=== PATIENT | male | born 1970 | race Caucasian/White ===

== ENCOUNTER → 2017-03-21 11:27 | Outpatient (CLI) | payer OTHER, SELFPAY ==
--- NOTE | 2017-03-21 11:33 | RAD_ITS ---
STUDY: X-RAY - CERVICAL SPINE REASON FOR EXAM: Male, 46 years old. Pain. Headaches with numbness. Tingling in both arms and hands for 6 months. TECHNIQUE: 3 view(s) of the cervical spine were obtained. COMPARISON: None FINDINGS: Normal anterior atlantoaxial articulation. Normal odontoid process. There is straightening of the normal cervical lordosis. Normal vertebral bodies and endplates. Normal disc space heights. There is no evidence of acute fracture or loss of vertebral axial height. There is maintenance of normal alignment. The soft tissue structures are unremarkable. RAD/Cerv Spine 2 or 3 Views IMPRESSION: Straightened cervical lordosis without other evidence of cervical spine abnormality. Electronically Signed: Anderson Clark DO at 12:37 EST Tel [phone], Service support ,
== END ==
PROVIDERS: Family Provider Internal Medicine; PCP Internal Medicine; Visit Provider Internal Medicine
DX: M54.12 Radiculopathy, cervical region (principal)
CPT/HCPCS: 72040

== ENCOUNTER → 2017-04-04 11:07 | Outpatient (CLI) | payer OTHER, SELFPAY ==
[2017-04-04 12:00] LABS: Amphetamine Urine VISTA NEGATIVE (<1000 ng/mL); Barbiturate Urine VISTA NEGATIVE (< 200 ng/mL); Benzodiazepine Urine VISTA NEGATIVE (< 200 ng/mL); Cocaine Urine VISTA NEGATIVE (< 300 ng/mL); Ecstacy Urine VISTA NEGATIVE (< 500 ng/mL); Methadone Urine VISTA NEGATIVE (< 300 ng/mL); PCP Urine VISTA NEGATIVE (< 25 ng/mL); THC Urine VISTA NEGATIVE (< 50 ng/mL); Vista UDS pH Range 4
== END ==
PROVIDERS: Family Provider Internal Medicine; PCP Internal Medicine; Visit Provider Anesthesiology Pain Medicine
DX: F11.20 Opioid dependence, uncomplicated (principal)
CPT/HCPCS: 80307

== ENCOUNTER → 2017-06-15 10:13 | Outpatient (CLI) | payer OTHER, SELFPAY ==
--- NOTE | 2017-06-15 12:46 | NEURO ---
NCS and/or EMG Patient Report Ordering Doctor: Mary Alice Cancino DATE OF SERVICE: 06/15/17 Ren Gonzalez is a 46-year-old male presents for electrodiagnostic testing of the upper limbs. He reports chief complaint of numbness in both hands. He also reports chronic neck pain. Electrodiagnostic findings: Median motor nerve demonstrates normal distal latency and amplitude bilaterally. Reduced median motor conduction velocity is noted bilaterally. Ulnar motor responses are normal bilaterally, including conduction across the elbow. Normal ulnar and radial sensory responses are noted. Prolonged right median sensory distal latency is noted. On needle EMG, all muscles tested in the upper limbs show no evidence of denervation with normal motor unit action potentials. Electrodiagnostic impression: This is an abnormal study. 1. Electrodiagnostic findings demonstrate bilateral median mononeuropathy. This is consistent with a mild bilateral carpal tunnel syndrome 2. No electrodiagnostic evidence is noted for ulnar neuropathy. This includes no evidence for cubital tunnel syndrome. 3. No electrodiagnostic evidence for cervical radiculopathy. If there are any further questions, please do not hesitate to contact me.
== END ==
PROVIDERS: Family Provider Internal Medicine; PCP Internal Medicine; Visit Provider Internal Medicine
DX: M54.12 Radiculopathy, cervical region (principal)
CPT/HCPCS: 95886; 95912

== ENCOUNTER → 2017-11-25 16:15 | Outpatient (CLI) | payer OTHER, SELFPAY ==
--- NOTE | 2017-11-25 16:18 | MRI_ITS ---
STUDY: MRI CERVICAL SPINE WITHOUT CONTRAST REASON FOR EXAM: Male, 47 years old. Neck pain and bilateral arm numbness TECHNIQUE: Standardized fat and water weighted pulse sequences were obtained in the sagittal and axial planes. COMPARISON: None FINDINGS: Normal foramen magnum and brainstem-cervical cord junction. Normal craniovertebral junction. Normal anterior atlantoaxial articulation. Normal odontoid process. Normal cervical lordosis. Normal vertebral bodies and posterior osseous elements. C2-3: Normal endplates. Normal disc height, signal and morphology. Normal central canal and intervertebral neural foramina. C3-4: Normal endplates. Normal disc height, signal and morphology. Normal central canal and intervertebral neural foramina. C4-5: Normal endplates. Normal disc height, signal and morphology. Normal central canal and intervertebral neural foramina. C5-6: Disc osteophyte complex with mild central canal stenosis. C6-7: Normal endplates. Normal disc height, signal and morphology. Normal central canal and intervertebral neural foramina. C7-T1: Normal endplates. Normal disc height, signal and morphology. Normal central canal and intervertebral neural foramina. Normal cervical cord. Normal visualized soft tissue structures. MRI/Spine Cervical (Routine) IMPRESSION: Mild C5-6 disc disease. No evidence of nerve root impingement or cord pathology. Electronically Signed: Corey Black MD at 3:41 EDT Tel , Service support ,
== END ==
PROVIDERS: Family Provider Internal Medicine; PCP Internal Medicine; Referring Provider Anesthesiology Pain Medicine; Visit Provider Anesthesiology Pain Medicine
DX: M54.2 Cervicalgia (principal)
CPT/HCPCS: 72141

== ENCOUNTER → 2018-04-11 10:27 | Outpatient (CLI) | payer OTHER, SELFPAY ==
[2018-04-11 11:30] LABS: Amphetamine Urine VISTA POSITIVE (<1000 ng/mL); Barbiturate Urine VISTA NEGATIVE (< 200 ng/mL); Benzodiazepine Urine VISTA NEGATIVE (< 200 ng/mL); Cocaine Urine VISTA NEGATIVE (< 300 ng/mL); Ecstacy Urine VISTA NEGATIVE (< 500 ng/mL); Methadone Urine VISTA NEGATIVE (< 300 ng/mL); PCP Urine VISTA NEGATIVE (< 25 ng/mL); THC Urine VISTA NEGATIVE (< 50 ng/mL); Vista UDS pH Range 5
== END ==
PROVIDERS: Family Provider Internal Medicine; PCP Internal Medicine; Referring Provider Anesthesiology Pain Medicine; Visit Provider Anesthesiology Pain Medicine
DX: F11.20 Opioid dependence, uncomplicated (principal)
CPT/HCPCS: 80307

== ENCOUNTER → 2018-12-04 09:53 | Outpatient (CLI) | payer OTHER, SELFPAY ==
[2017-03-15 14:44] VITALS: BMI 45.4
[2018-12-04 11:58] LABS: Amphetamine Urine VISTA NEGATIVE (<1000 ng/mL); Barbiturate Urine VISTA NEGATIVE (< 200 ng/mL); Benzodiazepine Urine VISTA NEGATIVE (< 200 ng/mL); Cocaine Urine VISTA NEGATIVE (< 300 ng/mL); Ecstacy Urine VISTA NEGATIVE (< 500 ng/mL); Methadone Urine VISTA NEGATIVE (< 300 ng/mL); PCP Urine VISTA NEGATIVE (< 25 ng/mL); THC Urine VISTA NEGATIVE (< 50 ng/mL); Vista UDS pH Range 5
== END ==
PROVIDERS: Family Provider Internal Medicine; PCP Internal Medicine; Referring Provider Anesthesiology Pain Medicine; Visit Provider Anesthesiology Pain Medicine
DX: F11.20 Opioid dependence, uncomplicated (principal)
CPT/HCPCS: 80307

== ENCOUNTER → 2019-08-21 17:27 | Outpatient (CLI) | payer OTHER, SELFPAY ==
--- NOTE | 2019-08-21 17:35 | MRI_ITS ---
STUDY: MRI LUMBAR SPINE WITHOUT CONTRAST REASON FOR EXAM: Male, 49 years old. lbp, bilat leg pain (R and amp;gt;L) -- -- Patient has had prior surgery at L5-S1 TECHNIQUE: Standardized fat and water weighted pulse sequences were obtained in the sagittal and axial planes. COMPARISON: None FINDINGS: T12-L1: Normal endplates. Normal disc height, hydration and normal morphology. Normal bilateral facet joints. Normal central canal and bilateral lateral recesses. Normal bilateral intervertebral neural foramina. Normal lumbar lordosis. There is no substantial scoliosis. Normal conus medullaris that terminates at T12-L1 L1-2: Normal endplates. Normal disc height, hydration and normal morphology. Normal bilateral facet joints. Normal central canal and bilateral lateral recesses. Normal bilateral intervertebral neural foramina. L2-3: Normal endplates. Normal disc height, hydration and normal morphology... Normal bilateral facet joints. Normal central canal and bilateral lateral recesses. Normal bilateral intervertebral neural foramina. L3-4: Normal endplates. Normal disc height, hydration and minimal annular bulge. Bilateral facet arthropathy and thickening of ligamenta flava. Normal central canal and bilateral lateral recesses. Mild to moderate bilateral neural foraminal encroachment L4-5: Normal endplates. Normal disc height, hydration and minor annular bulge.. Bilateral facet arthropathy.. Normal central canal and bilateral lateral recesses. Mild to moderate bilateral neural foraminal encroachment L5-S1: Postop change status post bilateral laminotomy Normal endplates. Normal disc height, desiccation and minor annular bulge in association with tiny central disc protrusion.. Bilateral facet arthropathy.. Normal central canal and bilateral lateral recesses. Moderate bilateral neuroforaminal stenosis. Normal visualized sacral ala. Normal visualized paraspinous soft tissue structures. MRI/Spine Lumbar (Routine) IMPRESSION: No evidence for acute fracture or subluxation. Postsurgical changes at L5-S1. Mild multilevel spinal stenosis secondary to bulging annuli and facet arthropathy most pronounced at L5-S1. Electronically Signed: Aneesh Banegas MD at 19:20 EDT , Service support ,
== END ==
PROVIDERS: PCP Internal Medicine; Referring Provider Anesthesiology Pain Medicine; Visit Provider Anesthesiology Pain Medicine
DX: M54.9 Dorsalgia, unspecified (principal); M79.604 Pain in right leg; M79.605 Pain in left leg
CPT/HCPCS: 72148

== ENCOUNTER 2019-08-28 17:38 | Observation (INO) | payer OTHER, SELFPAY ==
[2019-08-28] VITALS (8 sets, daily range): BP systolic 116–159; BP diastolic 84–103; PULSE 79–124; RESP 16–25; TEMP 36.6–37.1; O2SAT 95–97; BMI 42.3; BMI 41.8
--- NOTE | 2019-08-28 18:03 | EKG12_ITS ---
Test Reason : CP Blood Pressure : / mmHG Vent. Rate : 124 BPM Atrial Rate : 124 BPM P-R Int : 176 ms QRS Dur : 106 ms QT Int : 306 ms P-R-T Axes : 054 270 048 degrees QTc Int : 439 ms Sinus tachycardia Left anterior fascicular block Abnormal ECG Confirmed by JOSE YATES, HALI ([id number]), electronic news gathering editor SARA BOATENG ([id number]) on 08/30/2019 1:25:38 PM Referred By: Lay Emanuel Confirmed By:HALI GARCIA MD
[2019-08-28 18:09] LABS: Absolute Lymphocyte Count 2.12 X10^3/uL (0.83-4.51); Absolute Neutrophil Count 6.1 X10^3/uL (2.0-7.7); Basophil# 0.06 X10^3/uL; Basophil% 0.6 % (0-1); Eosinophil# 0.12 X10^3/uL; Eosinophils% 1.3 % (0-5); Hematocrit 48.4 % (40-54); Hemoglobin 15.9 g/dL (13.0-16.5); Lymphocyte # 2.12 X10^3/ul (4.0); Lymphocyte % 22.8 % (19-41); Mean Corp Hgb Conc 32.9 g/dL (32-36); Mean Corpuscular Hgb 29.2 pg (27.0-32.0); Mean Platelet Vol. 10.8 fl (6.2-12.0); Monocyte# 0.84 X10^3/uL; Monocyte% 9.1 % (0-10); NRBC Flagged by Analyzer 0 % (0-5); Neutrophil # 6.08 X10^3/uL (2.7-7.7); Neutrophil % 65.6 % (47-70); Platelet Count 238 K/mm3 (150-450); RBC Distribution Width CV 13.1 % (11.6-14.6); RBC Distribution Width SD 42.3 fl (35.1-43.9); Red Blood Count 5.44 M/mm3 (4.6-6.2); White Blood Count 9.3 K/mm3 (4.4-11.0)
[2019-08-28 18:17] LABS: D-Dimer Quantitative (DVT/PE) 0.33 FEU/ug/m (0.27-0.49)
--- NOTE | 2019-08-28 18:18 | RAD_ITS ---
STUDY: X-RAY CHEST REASON FOR EXAM: Male, 49 years old. Chest pain TECHNIQUE: Frontal view of the chest COMPARISON: None. FINDINGS: The lungs are clear. There are no pleural effusions. There is no pneumothorax. The heart is normal in size. The visualized osseous structures are within normal limits. RAD/Chest 1 View (Portable) IMPRESSION: No acute thoracic pathology. Electronically Signed: Jeovany Hein, at 18:39 EDT Tel , Service support ,
[2019-08-28] MEDS: Aspirin 81 MG TAB.CHEW 324 MG PO (18:24)
[2019-08-28 18:25] LABS: Anion Gap 6 (5-15); BUN 12 mg/dL (7-18); BUN/Creat Ratio 9.4 RATIO (10-20); Calcium,Total 8.9 mg/dL (8.5-10.1); Chloride 108 mmol/L (98-107); Creatinine, Serum 1.27 mg/dL (0.70-1.30); EST Glomerular Filtration Rate 64 mL/min (>60); Est Glom Filt Rate - Afr Amer 77 mL/min (>60); Estimated Creatinine Clearance 73.29 ml/min; Glucose 113 mg/dL (74-106); Potassium 3.8 mmol/L (3.5-5.1); Sodium Level 141 mmol/L (136-145)
--- NOTE | 2019-08-28 20:28 | ED.VISSUMM ---
- ER Visit Summary Date of Service: 08/28/19 Chief Complaint: Chest pain History of Present Illness: The patient is a 49 M presenting with chest pain. This started 1.5 hours prior to arrival. At worst pain was 7 out of 10. He describes pain in his left chest radiating to his left arm. He had associated dizziness, near syncope, shortness of breath, nausea. He denies recent fever or cough. He has a remote history of heart surgery due to coarctation of aorta at age 16. He is not a smoker. History of DVT. Denies other complaints. Physical Examination: Vitals are stable. Patient is afebrile. Alert no acute distress. HEENT exam is unremarkable. Neck is supple. Lungs are clear and equal bilaterally. Heart is regular and tachycardic Abdomen is soft nontender nondistended. Extremities are unremarkable. Skin is warm and dry. No focal neurologic deficit. Remainder of exam is unremarkable. Emergency Department Course and Treatment: EKG is sinus tachycardia rate of 124. Chest x-ray shows no acute process. CBC, chemistries unremarkable. Troponin is negative. D-dimer negative. Patient was given aspirin on arrival. On reevaluation he is resting comfortably. Discussed with the hospitalist for admission. Disposition: Observation Impression: Chest pain This note was generated with [employer] dictation software. It may contain incorrect words, spelling, and punctuation that were not noted in review of the chart prior to signing
--- NOTE | 2019-08-28 20:49 | PCM.HP.STD ---
Problem List (1) Chest pain Status: Acute Qualifiers: Chest pain type: unspecified Qualified Code(s): R07.9 - Chest pain, unspecified (2) Hypertension Status: Chronic Qualifiers: Hypertension type: essential hypertension Qualified Code(s): I10 - Essential (primary) hypertension (3) Depression Status: Chronic Qualifiers: Depression Type: unspecified Qualified Code(s): F32.9 - Major depressive disorder, single episode, unspecified (4) Chronic back pain Status: Chronic Qualifiers: Back pain location: back pain in unspecified location Back pain laterality: unspecified Qualified Code(s): M54.9 - Dorsalgia, unspecified; G89.29 - Other chronic pain (5) Morbid obesity Status: Chronic History of Present Illness Date of Admission: 08/28/19 Chief Complaint: chest pain - 1 day The patient is a 49 year old M with past medical history of history of loud aortic coarctation repair, hypertension, depression, morbid obesity who comes in with complaints of chest pain that started 1 day ago. Patient admits to having abdominal discomfort which felt like a tummy upset 1 day prior to admission. 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 This chest pain lasted for more than 1 hour. It appeared to have gotten better whilst in the emergency department. He denies any smoking or fever or chills or cough. No bilateral leg swelling. Vitals in the ED showed temperature 97.8 F, heart rate was 124, blood pressure 116/103, respiratory rate was 25, SPO2 is 95% on room air. CBC D was unremarkable as well as BMP. Troponins x1 was negative. EKG showed normal sinus rhythm, sinus tachycardia, no acute ST-T changes. Chest x-ray shows no acute cardiopulmonary abnormality. Past Medical History Past Medical History (Chronic Problems): Chronic Problems (Last Updated 03/15/17 @ 14:50 by Car Trevino) Hypertension (Chronic) Depression (Chronic) Chronic back pain (Chronic) Morbid obesity (Chronic) Medical History: Medical History (Last Updated 03/15/17 @ 14:50 by Car Trevino) Depression F32.9 Hypertension I10 Allergies No Known Allergies Allergy (Verified 08/28/19 17:47) Home Medications: Ambulatory Orders Medication Instructions Recorded duloxetine 30 mg capsule,delayed 30 mg PO ONCE cap 03/15/17 release esomeprazole magnesium 20 mg 20 mg PO PRN PRN cap 03/15/17 capsule,delayed release lisinopril 5 mg tablet 5 mg PO ONCE tab 03/15/17 naproxen 500 mg tablet 500 mg PO Q12H PRN 03/15/17 Dextroamphetamine/Amphetamine 30 mg PO BID 08/28/19 [Dextroamp-Amphet ER 30 mg Cap] Sildenafil Citrate [Viagra] 50 mg PO PRN PRN 08/28/19 Tapentadol HCl [Nucynta] 50 mg PO TID 08/28/19 Surgical History: Surgical History (Last Updated 03/15/17 @ 14:51 by Car Trevino) 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 H/O repair of left rotator cuff Z98.890 L5/S1 laminectomy 09/21/16 Surgical History: cataract - right eye, rotator cuff repair - x3, - - s/p L5/S1 laminectomy Psychiatric History: Depression Lives: Spouse/ Significant Other Smoking Status: Never smoker Tobacco Use: Non-smoker Alcohol: Occasional Drugs: None - *Family History Maternal Family History: Family History (Last Updated 03/15/17 @ 14:51 by Car Trevino) Father Cancer Mother Cancer History Items: Cancer, - - s/p brain bleed Paternal Family History: Family History (Last Updated 03/15/17 @ 14:51 by Car Trevino) Father Cancer Mother Cancer History Items: Cancer, Heart Disease Review of Systems Constitutional: Denies: Anorexia, Chills, Fever, Night Sweats, Malaise, Weakness, Weight Change, Fatigue Eyes: Denies: Blurred vision, Cataracts, Pain, Redness HEENT: Denies: Difficulty Hearing, Difficulty Swallowing, Head Aches, Hearing Changes, Sinus Congestion, Sinus Drainage Cardiovascular: Reports: Chest Pain, Chest Pressure, Chest Tightness, Light Headedness, Palpitations. Denies: Claudication, Orthopnea, Syncope Respiratory: Denies: Cough, Hemoptysis, Shortness of breath at rest, Shortness of breath upon exertion, Sputum production Gastrointestinal: Denies: Abdominal Pain, Constipation, Hematemesis, Hematochezia, Nausea, Vomiting Genitourinary: Denies: Dysuria, Frequency, Incontinence Musculoskeletal: Denies: Joint Pain, Joint stiffness, Joint swelling, Joint Tenderness Skin: Denies: Pruritis, Rash, Wounds Neurological: Denies: Difficulty swallowing, Focal weakness, Numbness, Tingling Psychiatric: Denies: Anxiety, Depression, Homicidal Ideations, Suicidal Ideations Hematologic/ Lymphatic: Denies: Easy Bruising, Easy Bleeding VTE Information - Inpt Only VTE Present on Admission: No VTE Pharm Prophylaxis ordered?: Yes Patient Problems: Active and Suspected Problems (Last Updated 03/15/17 @ 14:50 by Car Trevino) Chest pain (Acute) - Physical Exam Vitals/I&O's: Vital Signs Temp Pulse Resp BP Pulse Ox 97.8 F 122 H 17 159/94 H 96 08/28/19 17:39 08/28/19 19:00 08/28/19 19:00 08/28/19 19:00 08/28/19 19:00 Oxygen Flow Rate (L/min) 2 Oxygen Delivery Method Room Air Weight: 137.8 kg Body Mass Index (BMI) 42.3 General: Alert, Oriented x3, Cooperative, No apparent distress, - - morbidly obese HEENT: Atraumatic, PERRLA, EOMI, Normocephalic Oral: Moist Mucosa Neck: Supple Lungs: Clear to auscultation, Normal air movement Cardiovascular: Regular rate, Regular Rhythm, Normal S1, Normal S2, No murmurs Abdomen: Bowel Sounds Present, Soft, Non Tender, Non-Distended, No Hepato-splenomegaly Extremities: No edema Skin: No rashes, No breakdown Musculoskeletal: No Tenderness to Palpation of Joints or Extremities Lymphatic: No Cervical, Supraclavicular, or Inguinal Adenopathy Neurological: Cranial nerves II-XII grossly intact, Neuro grossly intact Psych/Mental Status: Normal Affect, Appropriate Laboratory Results 08/28/19 17:50: WBC 9.3, RBC 5.44, Hgb 15.9, Hct 48.4, MCV 89.0, MCH 29.2, MCHC 32.9, RDW Std Deviation 42.3, RDW Coeff of Praveen 13.1, Plt Count 238, MPV 10.8, Immature Gran % (Auto) 0.600, Neut % (Auto) 65.6, Lymph % (Auto) 22.8, [place] % (Auto) 9.1, Eos % (Auto) 1.3, Baso % (Auto) 0.6, Absolute Neuts (auto) 6.1, Absolute Lymphs (auto) 2.12, Nucleated RBC % 0 08/28/19 17:50: D-Dimer Quant (PE/DVT) 0.33 08/28/19 17:50: Sodium 141, Potassium 3.8, Chloride 108 H, Carbon Dioxide 27.0, Anion Gap 6, BUN 12, Creatinine 1.27, Estim Creat Clear Calc 73.29, Est GFR (MDRD) Af Amer 77, Est GFR (MDRD) Non-Af 64, BUN/Creatinine Ratio 9.4 L, Glucose 113 H, Calcium 8.9, Troponin I < 0.015 Assessment/Plan All Active Problems (Last Updated 03/15/17 @ 14:50 by Car Trevino) Chest pain (Acute) 49 year old M with past medical history of history of loud aortic coarctation repair, hypertension, depression, morbid obesity who comes in with 1 day history of chest pain. 1. Chest pain, atypical, in a patient with multiple risk factors H/o aortic coarctation repair in childhood EKG shows sinus tachycardia. D-dimer is negative. Troponin x1 neg Plan: Admit to PCU, continue to monitor on telemetry, trend troponins Aspirin 81 mg p.o. daily, sublingual nitro as needed, 2D echo, stress test in a.m. Lipid profile in am, IV PPI BID 2. Hypertension, uncontrolled, will continue on home medication as well as prn hydralazine 3. Depression, continue home medication 43. DVT PPx- low risk, early ambulation OBSV E&M: [id number] Initial observation care L3
--- NOTE | 2019-08-28 21:05 | ECHOCS_ITS ---
Reason For Study: CP Procedure This was a 2D Doppler, Color Flow transthoracic echocardiogram. The study was technically difficult. Contrast injection was performed. Exam performed in department. Left Ventricle Normal LV size. Left ventricular systolic function is normal. The estimated ejection fraction is 55 %. Transmitral doppler flow suggestive of impaired relaxation of left ventricle. No regional wall motion abnormalities noted. Right Ventricle Normal RV size. Normal systolic function. Atria Normal left atrium. Normal right atrium. No doppler evidence for ASD. Mitral Valve There is no mitral annular calcification. Normal mitral valve. Trivial mitral valve insufficiency. Tricuspid Valve Normal tricuspid valve. Trivial tricuspid valve insufficiency. Unable to estimate RV systolic pressure/pulmonary artery pressure due to technically difficult study. Aortic Valve Trisinus/trileaflet aortic valve. Normal aortic valve. Pulmonic Valve The pulmonic valve is not well visualized. Great Vessels Borderline enlarged aortic root. Pericardium/Pleural No pericardial effusion. Medication Diluted definity 3ml given slow IV push to enhance endocardial definition. MMode/2D Measurements & Calculations LVIDd: 4.8 cm IVSd: 1.2 cm Ao root diam: 3.9 cm LVIDs: 2.9 cm LVPWd: 1.4 cm LA dimension: 4.1 cm RVDd: 3.7 cm FS: 40.3 % LAV(MOD-bp): 38.0 ml LA A4 area: 16.6 cm2 RA A4 area: 12.5 cm2 LAV(MOD-bp) Indexed: 15.2 ml/m2 LAV(MOD-sp2): 31.8 ml LAV(MOD-sp4): 44.2 ml Time Measurements MV dec time: 0.26 sec Doppler Measurements & Calculations MV E max grabiel: 75.9 cm/sec Lat Peak E' Grabiel: 8.2 cm/sec Med Peak E' Grabiel: 8.4 cm/sec MV A max grabiel: 87.6 cm/sec E/E' lat: 9.3 E/E' med: 9.0 MV E/A: 0.87 MV V2 max: 98.1 cm/sec MV P1/2t max grabiel: 92.1 cm/sec Ao V2 max: 131.8 cm/sec MV max P.9 mmHg MV P1/2t: 109.8 msec Ao max P.0 mmHg MV V2 mean: 54.1 cm/sec MV dec slope: 245.7 cm/sec2 Ao V2 mean: 87.0 cm/sec MV mean P.4 mmHg Ao mean P.5 mmHg MV V2 VTI: 33.3 cm MVA(P1/2t): 2.0 cm2 Ao V2 VTI: 26.0 cm LV V1 max: 112.9 cm/sec PA V2 max: 79.3 cm/sec LV V1 max P.1 mmHg LV V1 mean P.6 mmHg LV V1 mean: 75.1 cm/sec LV V1 VTI: 22.7 cm Interpretation Summary The study was technically difficult. Contrast injection was performed. Left ventricular systolic function is normal. The estimated ejection fraction is 55 %. Trivial mitral valve insufficiency. Trivial tricuspid valve insufficiency. Borderline enlarged aortic root. Unable to estimate RV systolic pressure/pulmonary artery pressure due to technically difficult study. Transmitral doppler flow suggestive of impaired relaxation of left ventricle Aortic arch: no obvious hemodynamically significant appearing coarctation of the aorta based upon the 2D echocardiographic images or spectral doppler / color folow doppler information obtained. Ordering Physician: Lay Emanuel Referring Physician: Lay Emanuel Performed By: Bobo Malik RCS
--- NOTE | 2019-08-28 21:41 | EKG12_ITS ---
Test Reason : CP Blood Pressure : / mmHG Vent. Rate : 075 BPM Atrial Rate : 075 BPM P-R Int : 194 ms QRS Dur : 114 ms QT Int : 372 ms P-R-T Axes : 033 -64 011 degrees QTc Int : 415 ms Normal sinus rhythm Left axis deviation Abnormal ECG No previous ECGs available Confirmed by JOSE YATES, HALI ([id number]), general expeditor ANAND CHIN ([id number]) on 09/03/2019 3:27:43 PM Referred By: Lay Emanuel Confirmed By:HALI GARCIA MD
[2019-08-28 22:19] LABS: AST(SGOT) 11 U/L (15-37); Alanine Aminotransfer ALT/SGPT 30 U/L (16-61); Albumin, Serum 3.7 g/dL (3.2-5.0); Alkaline Phosphatase 107 U/L (45-117); Globulin 3.7 g/dL (2.2-4.2); Protein, Total 7.4 g/dL (6.4-8.2); Thyroid Stim Hormone (TSH) 2.33 uIU/mL (0.358-3.74)
--- NOTE | 2019-08-29 02:30 | NURSING ---
Assumed care of pt at this time. Report received from Mayo Engel RN.
[2019-08-29 03:00] VITALS: PULSE 58
[2019-08-29 03:30] VITALS: BP 123/69; PULSE 58; RESP 18; TEMP 36.5; O2SAT 96
--- NOTE | 2019-08-29 05:55 | EKG12_ITS ---
Test Reason : AM EKG Blood Pressure : / mmHG Vent. Rate : 063 BPM Atrial Rate : 063 BPM P-R Int : 200 ms QRS Dur : 120 ms QT Int : 416 ms P-R-T Axes : 048 -58 016 degrees QTc Int : 425 ms Normal sinus rhythm Left anterior fascicular block Abnormal ECG When compared with ECG of 28-AUG-2019 21:41, MANUAL COMPARISON REQUIRED, DATA IS UNCONFIRMED Confirmed by JOSE YATES, HALI ([id number]), photographic editor ROLO BUSTILLOS ([id number]) on 09/03/2019 1:21:21 PM Referred By: Lay Emanuel Confirmed By:HALI GARCIA MD
[2019-08-29 06:10] VITALS: BP 125/80; PULSE 62; RESP 18; TEMP 36.4; O2SAT 96
[2019-08-29] MEDS: Aspirin 81 MG TAB.CHEW PO (06:10)
[2019-08-29 06:21] LABS: Absolute Lymphocyte Count 3.06 X10^3/uL (0.83-4.51); Absolute Neutrophil Count 4.9 X10^3/uL (2.0-7.7); Basophil# 0.06 X10^3/uL; Basophil% 0.7 % (0-1); Eosinophil# 0.18 X10^3/uL; Hematocrit 46.7 % (40-54); Hemoglobin 14.5 g/dL (13.0-16.5); Lymphocyte # 3.06 X10^3/ul (4.0); Lymphocyte % 33.4 % (19-41); Mean Corpuscular Hgb 28.2 pg (27.0-32.0); Mean Corpuscular Volume 90.7 fL (80-94); Mean Platelet Vol. 10.7 fl (6.2-12.0); Monocyte# 0.85 X10^3/uL; Monocyte% 9.3 % (0-10); NRBC Flagged by Analyzer 0 % (0-5); Neutrophil # 4.93 X10^3/uL (2.7-7.7); Neutrophil % 53.6 % (47-70); Platelet Count 210 K/mm3 (150-450); RBC Distribution Width CV 13.2 % (11.6-14.6); RBC Distribution Width SD 43.8 fl (35.1-43.9); Red Blood Count 5.15 M/mm3 (4.6-6.2); White Blood Count 9.2 K/mm3 (4.4-11.0)
[2019-08-29 06:53] LABS: ALB/GLOB Ratio 0.9 RATIO (0.9-2.4); AST(SGOT) 11 U/L (15-37); Alanine Aminotransfer ALT/SGPT 28 U/L (16-61); Albumin, Serum 3.3 g/dL (3.2-5.0); Alkaline Phosphatase 93 U/L (45-117); Anion Gap 4 (5-15); BUN 18 mg/dL (7-18); Calcium,Total 8.5 mg/dL (8.5-10.1); Chloride 106 mmol/L (98-107); Cholesterol 156 mg/dL (200); Creatinine, Serum 1.06 mg/dL (0.70-1.30); EST Glomerular Filtration Rate 78 mL/min (>60); Est Glom Filt Rate - Afr Amer 95 mL/min (>60); Estimated Creatinine Clearance 87.81 ml/min; Globulin 3.6 g/dL (2.2-4.2); Glucose 93 mg/dL (74-106); High Density Lipoprotein 32 mg/dL; Potassium 3.9 mmol/L (3.5-5.1); Protein, Total 6.9 g/dL (6.4-8.2); Sodium Level 139 mmol/L (136-145); Triglycerides 143 mg/dL; Very Low Density Lipoprotein 29 mg/dL (5-40)
[2019-08-29 07:03] VITALS: PULSE 61
--- NOTE | 2019-08-29 09:38 | STRESSREP_ITS ---
Stress Test Report Date: 08-29-2019 Procedure: Exercise tolerance test/imaging study Indications: Chest pain; 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 The baseline ECG demonstrated normal sinus rhythm; right IVCD pattern. The peak exercise ECG demonstrated no obvious ECG changes. There were no cardiac dysrhythmias pretest, during exercise, or recovery. The functional capacity was considered good. There was no complaint of chest discomfort during exercise or recovery. The examination was discontinued secondary to dyspnea. Impression: 1. Technically adequate (percent predicted maximal heart rate greater than 85%) exercise tolerance test 2. Peak exercise ECG with no obvious ECG changes 3. There were no cardiac dysrhythmias pretest, during exercise, or recovery 4. Nuclear images pending Myocardial perfusion imaging study: Technique: The patient was injected with 14.7 mCi of technetium 99m Cardiolite and subsequently rest SPECT Cardiolite nuclear imaging was obtained in the horizontal long, vertical long, and short axis views. The patient exercised on a Yusuf protocol for 9 minutes completing Stage III achieving a peak heart rate of 141 bpm (83 % predicted maximal heart rate) with a peak blood pressure 194/84 mmHg and a peak MET capacity of 10 METs. The patient was injected with 44.3 mCi of technetium 99m Cardiolite and subsequently stress SPECT Cardiolite nuclear imaging was obtained in the horizontal long, vertical long, and short axis views. A gated Cardiolite study at peak stress was obtained. Interpretation: Rest and stress SPECT Cardiolite nuclear imaging status post realignment, normalization, and attenuation correction, demonstrates parents of a small area of diminished tracer uptake in portions of the apical segments which appear somewhat more prominent on the resting images as opposed to stress images and otherwise without significant change between rest and stress. There is end systolic thickening and brightening. The gated Cardiolite study demonstrates myocardial thickening and inward wall motion. The reported LVEF is 61 %. Impression: 1. Rest and stress SPECT Cardiolite nuclear imaging demonstrate card perfusion changes compatible with shifting soft tissue attenuation/artifact and/or an element of physiologic apical thinning with no myocardial perfusion changes considered diagnostic for associated stress-induced myocardial ischemia. 2. The gated Cardiolite study reports an LVEF of 61 %. This note was generated with [employer] software. It may contain incorrect words, spelling, and punctuation that were not noted in checking the note before signing.
[2019-08-29 10:08] VITALS: BP 124/85; PULSE 70; RESP 14; TEMP 36.8; O2SAT 95
--- NOTE | 2019-08-29 13:32 | DCINST_ITS ---
- Discharge Diagnoses Current Active Problems: Current Active and Chronic Problems (Last Updated 03/15/17 @ 14:50 by Car Trevino) Chest pain (Acute) Hypertension (Chronic) Depression (Chronic) Chronic back pain (Chronic) Morbid obesity (Chronic) You will use the following diet at home:: No restrictions Your food should be the consistency of: Regular Your liquids should be the consistency of: Regular/Thin Discharge Activity: Return to Normal Activity May resume sexual activity in: No Restrictions Call your doctor if you observe: Fever of 101 or Higher, Shortness of breath, Chest pain Allergies/Adverse Reactions: Allergies No Known Allergies Allergy (Verified 08/28/19 17:47) Medications to take at Discharge duloxetine 30 mg capsule,delayed release 30 mg PO BREAKFAST cap 03/15/17 esomeprazole magnesium 20 mg capsule,delayed release 20 mg PO PRN PRN cap 03/15/17 lisinopril 5 mg tablet 5 mg PO QHS tab 03/15/17 naproxen 500 mg tablet 500 mg PO Q12H PRN 03/15/17 Dextroamphetamine/Amphetamine [Dextroamp-Amphet ER 30 mg Cap] 30 mg PO BID 08/28/19 Sildenafil Citrate [Viagra] 50 mg PO PRN PRN 08/28/19 Tapentadol HCl [Nucynta] 50 mg PO TID 08/28/19 Primary Care Physician: Mary Alice Cancino DO [Primary Care Provider] - Please follow up with your Primary Care Physician in: 1-2 weeks Test Results: Test results from this visit will be discussed in further detail at your follow- up appointment, if applicable.
--- NOTE | 2019-08-29 13:33 | DS.PCM_ITS ---
Discharge Date and Diagnosis - Problem List Patient Problems: Active and Suspected Problems (Last Updated 03/15/17 @ 14:50 by Car Trevino) Chest pain (Acute) Date of Admission: 08/28/19 - Primary Discharge Diagnosis Acute Problems: Active Problems (Last Updated 03/15/17 @ 14:50 by Car Trevino) Chest pain (Acute) - Secondary Discharge Diagnosis Chronic Problems: Chronic Problems (Last Updated 03/15/17 @ 14:50 by Car Trevino) Hypertension (Chronic) Depression (Chronic) Chronic back pain (Chronic) Morbid obesity (Chronic) Hospital Course and Treatment Imaging Results: Stress Test Report Date: 08-29-2019 Procedure: Exercise tolerance test/imaging study Indications: Chest pain; 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 The baseline ECG demonstrated normal sinus rhythm; right IVCD pattern. The peak exercise ECG demonstrated no obvious ECG changes. There were no cardiac dysrhythmias pretest, during exercise, or recovery. The functional capacity was considered good. There was no complaint of chest discomfort during exercise or recovery. The examination was discontinued secondary to dyspnea. Impression: 1. Technically adequate (percent predicted maximal heart rate greater than 85%) exercise tolerance test 2. Peak exercise ECG with no obvious ECG changes 3. There were no cardiac dysrhythmias pretest, during exercise, or recovery 4. Nuclear images pending Myocardial perfusion imaging study: Technique: The patient was injected with 14.7 mCi of technetium 99m Cardiolite and subsequently rest SPECT Cardiolite nuclear imaging was obtained in the horizontal long, vertical long, and short axis views. The patient exercised on a Yusuf protocol for 9 minutes completing Stage III achieving a peak heart rate of 141 bpm (83 % predicted maximal heart rate) with a peak blood pressure 194/84 mmHg and a peak MET capacity of 10 METs. The patient was injected with 44.3 mCi of technetium 99m Cardiolite and subsequently stress SPECT Cardiolite nuclear imaging was obtained in the horizontal long, vertical long, and short axis views. A gated Cardiolite study at peak stress was obtained. Interpretation: Rest and stress SPECT Cardiolite nuclear imaging status post realignment, normalization, and attenuation correction, demonstrates parents of a small area of diminished tracer uptake in portions of the apical segments which appear somewhat more prominent on the resting images as opposed to stress images and otherwise without significant change between rest and stress. There is end systolic thickening and brightening. The gated Cardiolite study demonstrates myocardial thickening and inward wall motion. The reported LVEF is 61 %. Impression: 1. Rest and stress SPECT Cardiolite nuclear imaging demonstrate card perfusion changes compatible with shifting soft tissue attenuation/artifact and/or an element of physiologic apical thinning with no myocardial perfusion changes considered diagnostic for associated stress-induced myocardial ischemia. 2. The gated Cardiolite study reports an LVEF of 61 %. ECHO 08/29/2019 Left ventricular systolic function is normal. The estimated ejection fraction is 55 %. Trivial mitral valve insufficiency. Trivial tricuspid valve insufficiency. Borderline enlarged aortic root. Unable to estimate RV systolic pressure/pulmonary artery pressure due to technically difficult study. Transmitral doppler flow suggestive of impaired relaxation of left ventricle Aortic arch: no obvious hemodynamically significant appearing coarctation of the aorta based upon the 2D echocardiographic images or spectral doppler / color folow doppler information obtained. None Operations: None Procedures: Nuclear stress test Summary of Care Provided: The patient is a 49 year old M with PMH of history of aortic coarctation repair when he was 16 yo, hypertension, depression, and morbid obesity who presented to the ED with complaints of chest pain that started 1 day ago. Patient admitted t o having abdominal discomfort/nausea. He had gone to [facility] prescriptions for his chronic pain medications when he started experiencing severe left-sided dull chest pain that radiated to his shoulders associated with diaphoresis shortness of breath and some palpitations. This chest pain lasted for more than 1 hour. His sx resolved in the ED. His EKG showed no changes c/w acute ischemia and his initial troponin was WNL. He was admitted to PCU. A stress test was performed and was neg for ischemia. An ECHO was done and showed a normal EF with no hemodynamic changes in the aorta and mild aortic root dilation. He was discharged in stable condition and instructed to f/u with his PCP in 1-2 weeks. No medication changes were made. Patient Problems: Active and Suspected Problems (Last Updated 03/15/17 @ 14:50 by Car Trevino) Chest pain (Acute) - Physical Exam Vitals/I&O's: Vital Signs Temp Pulse Resp BP Pulse Ox 98.3 F 70 14 124/85 H 95 08/29/19 10:08 08/29/19 10:08 08/29/19 10:08 08/29/19 10:08 08/29/19 10:08 Oxygen Flow Rate (L/min) 2 Oxygen Delivery Method Room Air Weight: 135.9 kg Body Mass Index (BMI) 41.8 Intake and Output for Last 24 Hours 08/27/19 08/28/19 08/29/19 23:59 23:59 23:59 Intake Total 1100 / 1099 Balance 1099 General: Alert, Oriented x3, Cooperative, No apparent distress, Well developed, Well nourished, - - obese WM sitting up in bed, at bedside HEENT: Atraumatic, PERRLA, EOMI, Normocephalic, EAC Clear Oral: Moist Mucosa, No Gingival or Mucosal Lesions/ Ulcerations Neck: Supple, No JVD, No Nodes, Trachea Midline Lungs: Clear to auscultation, Normal air movement, No rhonchi, No wheeze Cardiovascular: Regular rate, Regular Rhythm, Normal S1, Normal S2, No murmurs, No Ectopic Activity, No rub noted, No Gallop Abdomen: Bowel Sounds Present, Soft, Non Tender, Non-Distended, Obese, No hernias noted Extremities: No clubbing, No cyanosis, No edema, Capillary Refill Less than 3 Seconds, No Calf Tenderness, Peripheral Pulses Normal Skin: No rashes, No breakdown Musculoskeletal: No Tenderness to Palpation of Joints or Extremities, No Muscle Wasting Lymphatic: No Cervical, Supraclavicular, or Inguinal Adenopathy Neurological: Cranial nerves II-XII grossly intact, Neuro grossly intact, Muscle tone normal, Coordination normal Psych/Mental Status: Normal Affect, Appropriate, Alert and oriented to time, place, person, mood and affect Laboratory Results 08/28/19 17:50: WBC 9.3, RBC 5.44, Hgb 15.9, Hct 48.4, MCV 89.0, MCH 29.2, MCHC 32.9, RDW Std Deviation 42.3, RDW Coeff of Praveen 13.1, Plt Count 238, MPV 10.8, Immature Gran % (Auto) 0.600, Neut % (Auto) 65.6, Lymph % (Auto) 22.8, [place] % (Auto) 9.1, Eos % (Auto) 1.3, Baso % (Auto) 0.6, Absolute Neuts (auto) 6.1, Absolute Lymphs (auto) 2.12, Nucleated RBC % 0 08/28/19 17:50: D-Dimer Quant (PE/DVT) 0.33 08/28/19 17:50: Sodium 141, Potassium 3.8, Chloride 108 H, Carbon Dioxide 27.0, Anion Gap 6, BUN 12, Creatinine 1.27, Estim Creat Clear Calc 73.29, Est GFR (MDRD) Af Amer 77, Est GFR (MDRD) Non-Af 64, BUN/Creatinine Ratio 9.4 L, Glucose 113 H, Calcium 8.9, Troponin I < 0.015 08/28/19 21:25: Total Bilirubin 0.30, Direct Bilirubin 0.10, AST 11 L, ALT 30, Alkaline Phosphatase 107, Total Protein 7.4, Albumin 3.7, Globulin 3.7, TSH 2.33 08/28/19 21:25: Troponin I < 0.015 08/29/19 01:25: Troponin I < 0.015 08/29/19 05:38: WBC 9.2, RBC 5.15, Hgb 14.5, Hct 46.7, MCV 90.7, MCH 28.2, MCHC 31.0 L D, RDW Std Deviation 43.8, RDW Coeff of [place]ve[place] 13.2, Plt Count 210, MPV 10.7, Immature Gran % (Auto) 1.000 H, Neut % (Auto) 53.6, Lymph % (Auto) 33.4, [place] % (Auto) 9.3, Eos % (Auto) 2.0, Baso % (Auto) 0.7, Absolute Neuts (auto) 4.9, Absolute Lymphs (auto) 3.06, Nucleated RBC % 0 08/29/19 05:38: Sodium 139, Potassium 3.9, Chloride 106, Carbon Dioxide 29.0, Anion Gap 4 L, BUN 18, Creatinine 1.06, Estim Creat Clear Calc 87.81, Est GFR (MDRD) Af Amer 95, Est GFR (MDRD) Non-Af 78, BUN/Creatinine Ratio 17.0, Glucose 93, Calcium 8.5, Total Bilirubin 0.40, AST 11 L, ALT 28, Alkaline Phosphatase 93, Total Protein 6.9, Albumin 3.3, Globulin 3.6, Albumin/Globulin Ratio 0.9, Triglycerides 143, Cholesterol 156, LDL Cholesterol 95, VLDL Cholesterol 29, HDL Cholesterol 32 L Current Medications Aspirin (Aspirin, Baby) 81 mg PO DAILY@0800 [facility] Last Admin: 08/29/19 06:10 Dose: 81 mg Documented by: Duloxetine HCl (Cymbalta) 30 mg PO BREAKFAST SANDIE Hydralazine HCl (Apresoline Iv) 5 mg IV Q6H PRN PRN PRN Reason: BLOOD PRESSURE Lisinopril (Zestril) 5 mg PO QHS SANDIE Oxycodone HCl (Oxyir) 5 mg PO Q4H PRN PRN PRN Reason: Pain Score 6-10/10 Sodium Chloride () 10 - 40 ml IV UD PRN PRN Reason: SALINE FLUSH Discharge Activity: Return to Normal Activity May resume sexual activity in: No Restrictions Call your doctor if you observe: Fever of 101 or Higher, Shortness of breath, Chest pain Home Medications: Medications to take at Discharge duloxetine 30 mg capsule,delayed release 30 mg PO BREAKFAST cap 03/15/17 esomeprazole magnesium 20 mg capsule,delayed release 20 mg PO PRN PRN cap 03/15/17 lisinopril 5 mg tablet 5 mg PO QHS tab 03/15/17 naproxen 500 mg tablet 500 mg PO Q12H PRN 03/15/17 Dextroamphetamine/Amphetamine [Dextroamp-Amphet ER 30 mg Cap] 30 mg PO BID 08/27 Sildenafil Citrate [Viagra] 50 mg PO PRN PRN 08/28/19 Tapentadol HCl [Nucynta] 50 mg PO TID 08/28/19 Primary Care Physician: Mary Alice Cancino DO [Primary Care Provider] - Please follow up with your Primary Care Physician in: 1-2 weeks Medical Necessity - Tobacco Use Smoking Status: Never smoker Tobacco Use: Non-smoker Meaningful Use Info Meaningful Use Diagnoses (Choose all that apply): None applicable Inpatient E&M: [id number] [facility]
== END 2019-08-29 13:33 | disposition home or self-care (01) ==
LOC: ED 18:31 → PCU 20:21
PROVIDERS: Admitting Provider Internal Medicine; Emergency Provider Emergency Medicine; PCP Internal Medicine; Referring Provider Internal Medicine; Visit Provider Internal Medicine
DX: R07.89 Other chest pain (principal); R06.02 Shortness of breath; R55 Syncope and collapse; I10 Essential (primary) hypertension; G89.29 Other chronic pain; E66.01 Morbid (severe) obesity due to excess calories; Z68.41 Body mass index [BMI] 40.0-44.9, adult; R00.0 Tachycardia, unspecified; F32.9 Major depressive disorder, single episode, unspecified; Z86.718 Personal history of other venous thrombosis and embolism; Z79.899 Other long term (current) drug therapy
CPT/HCPCS: 36415; 71045; 78452; 80048; 80053; 80061; 80076; 84443; 84484; 85025; 85379; 93005; 93017; 93306; 97802; 99218; 99285; A9500; Q9957; A4216; C8929; G0378

== ENCOUNTER → 2020-06-12 15:26 | Outpatient (CLI) | payer OTHER, SELFPAY ==
[2019-08-28 21:05] VITALS: BMI 41.8
[2020-06-12 18:04] LABS: Amphetamine Urine VISTA POSITIVE (<1000 ng/mL); Barbiturate Urine VISTA NEGATIVE (< 200 ng/mL); Benzodiazepine Urine VISTA NEGATIVE (< 200 ng/mL); Cocaine Urine VISTA NEGATIVE (< 300 ng/mL); Ecstacy Urine VISTA NEGATIVE (< 500 ng/mL); Methadone Urine VISTA NEGATIVE (< 300 ng/mL); PCP Urine VISTA NEGATIVE (< 25 ng/mL); THC Urine VISTA NEGATIVE (< 50 ng/mL); Vista UDS pH Range 6
== END ==
PROVIDERS: PCP Internal Medicine; Referring Provider Anesthesiology Pain Medicine; Visit Provider Anesthesiology Pain Medicine
DX: F11.20 Opioid dependence, uncomplicated (principal)
CPT/HCPCS: 80307

== ENCOUNTER → 2021-09-16 | Outpatient (CLI) | payer OTHER, MEDICARE, BC, SELFPAY ==
[2021-09-16 16:56] LABS: Amphetamine Urine VISTA NEGATIVE (<1000 ng/mL); Barbiturate Urine VISTA NEGATIVE (< 200 ng/mL); Benzodiazepine Urine VISTA NEGATIVE (< 200 ng/mL); Cocaine Urine VISTA NEGATIVE (< 300 ng/mL); Ecstacy Urine VISTA NEGATIVE (< 500 ng/mL); Methadone Urine VISTA NEGATIVE (< 300 ng/mL); PCP Urine VISTA NEGATIVE (< 25 ng/mL); THC Urine VISTA NEGATIVE (< 50 ng/mL); Vista UDS pH Range 6
== END | disposition home or self-care (01) ==
PROVIDERS: PCP Internal Medicine; Visit Provider Anesthesiology Pain Medicine
DX: F11.20 Opioid dependence, uncomplicated (principal)
CPT/HCPCS: 80307

== ENCOUNTER → 2022-08-20 | Outpatient (CLI) | payer OTHER, BC, MEDICARE, SELFPAY ==
[2022-08-20 15:49] LABS: Amphetamine Urine VISTA NEGATIVE (<1000 ng/mL); Barbiturate Urine VISTA NEGATIVE (< 200 ng/mL); Benzodiazepine Urine VISTA NEGATIVE (< 200 ng/mL); Cocaine Urine VISTA NEGATIVE (< 300 ng/mL); Ecstacy Urine VISTA NEGATIVE (< 500 ng/mL); Methadone Urine VISTA NEGATIVE (< 300 ng/mL); PCP Urine VISTA NEGATIVE (< 25 ng/mL); THC Urine VISTA NEGATIVE (< 50 ng/mL); Vista UDS pH Range 4
== END | disposition home or self-care (01) ==
PROVIDERS: PCP Internal Medicine; Referring Provider Anesthesiology Pain Medicine; Visit Provider Anesthesiology Pain Medicine
DX: F11.20 Opioid dependence, uncomplicated (principal)
CPT/HCPCS: 80307

== ENCOUNTER → 2023-05-25 | Outpatient (CLI) | payer BC, MEDICARE, SELFPAY ==
[2023-05-25 13:13] LABS: Amphetamine Urine VISTA POSITIVE (<1000 ng/mL); Barbiturate Urine VISTA NEGATIVE (< 200 ng/mL); Benzodiazepine Urine VISTA NEGATIVE (< 200 ng/mL); Cocaine Urine VISTA NEGATIVE (< 300 ng/mL); Ecstacy Urine VISTA NEGATIVE (< 500 ng/mL); Methadone Urine VISTA NEGATIVE (< 300 ng/mL); PCP Urine VISTA NEGATIVE (< 25 ng/mL); THC Urine VISTA NEGATIVE (< 50 ng/mL); Vista UDS pH Range 5
== END | disposition home or self-care (01) ==
LOC: LAB 10:33
PROVIDERS: PCP Internal Medicine; Referring Provider Anesthesiology Pain Medicine; Visit Provider Anesthesiology Pain Medicine
DX: F11.20 Opioid dependence, uncomplicated (principal)
CPT/HCPCS: 80307

== ENCOUNTER → 2024-02-27 | Outpatient (CLI) | payer MEDICARE, BC, SELFPAY ==
--- NOTE | 2024-02-27 17:30 | RAD_ITS ---
HISTORY: pain. TECHNIQUE: XR Spine Cervical 2 or 3 Views. COMPARISON: 03/21/2017. FINDINGS: VERTEBRAE: Vertebral body heights maintained. No acute fracture identified. ALIGNMENT: No significant anterior or posterior subluxation. Preservation of the cervical lordosis. INTERVERTEBRAL DISCS: Mild degenerative endplate changes with intervertebral disc space narrowing at C5-6. Limited evaluation of the lower cervical spine due to overlapping soft tissues and osseous structures. SOFT TISSUES: No significant prevertebral soft tissue swelling. RAD/Cerv Spine 2 or 3 Views IMPRESSION: No acute fracture or dislocation identified in the cervical spine. Mild degenerative change. Limited evaluation of the lower cervical spine due to overlapping soft tissues and osseous structures on the lateral view. Electronically Signed: Christelle Huff MD at 10:18 EST ,
== END | disposition home or self-care (01) ==
LOC: RAD 17:16
PROVIDERS: PCP Internal Medicine; Referring Provider Anesthesiology Pain Medicine; Visit Provider Anesthesiology Pain Medicine
DX: M54.12 Radiculopathy, cervical region (principal)
CPT/HCPCS: 72040

== ENCOUNTER → 2024-09-03 | Outpatient (CLI) | payer MEDICARE, BC, SELFPAY ==
[2024-09-03 13:18] LABS: Barbiturate Urine NEGATIVE (< 200 ng/mL); Benzodiazepine Urine NEGATIVE (< 200 ng/mL); PCP Urine NEGATIVE (< 25 ng/mL); THC Urine NEGATIVE (< 50 ng/mL)
== END | disposition home or self-care (01) ==
LOC: LAB 12:13
PROVIDERS: PCP Internal Medicine; Referring Provider Anesthesiology Pain Medicine; Visit Provider Anesthesiology Pain Medicine
DX: F11.20 Opioid dependence, uncomplicated (principal)
CPT/HCPCS: 80307